=== PATIENT | male | born 2000 | race African-American/Black ===

== ENCOUNTER 2022-12-15 11:59 | Outpatient (REF) | payer BC, SELFPAY ==
--- NOTE | ~2022-12-15 | MR_ITS ---
EXAMINATION: MRI FOOT RIGHT WITHOUT CONTRAST CLINICAL INDICATION: Injury to right 5th metatarsal. COMPARISON: None available. TECHNIQUE: Multiplanar MR imaging was obtained through the right forefoot without contrast material on a 1.5 Genesis magnet. FINDINGS: At the 5th MTP joint, there is a defect in the plantar joint capsule measuring 1.2 x 1.4 cm in area (AP by transverse) with medial displacement torn capsular/plantar plate tissue. A small amount of the plantar plate remains attached to the 5th proximal phalangeal base. There is slight dorsal subluxation of the proximal phalangeal base at the level of the MTP joint. Small joint effusion. Collateral ligaments appear intact. The flexor and extensor tendons also appear intact. Minimal flexor tenosynovitis. No fractures are identified. Bone marrow signal is normal. No contusions. Joint spaces appear relatively well preserved. Intrinsic foot musculature is normal in signal intensity. No muscle atrophy. Imaged plantar fascia is intact. MR/MR foot RT wo con IMPRESSION: Large tear of the plantar plate and plantar joint capsule at the 5th MTP joint with slight dorsal subluxation of the proximal phalangeal base.
== END 2022-12-15 12:00 | disposition home or self-care (01) ==
LOC: HO.MRI 11:59
PROVIDERS: Visit Provider Family Medicine Sports Medicine
DX: S96.811A Strain of other specified muscles and tendons at ankle and foot level, right foot, initial encounter (principal); X58.XXXA Exposure to other specified factors, initial encounter; Y93.9 Activity, unspecified; Y92.9 Unspecified place or not applicable; Y99.9 Unspecified external cause status
CPT/HCPCS: 73718

== ENCOUNTER 2024-05-26 19:10 | Outpatient (REF) | payer OTHER, SELFPAY ==
--- NOTE | ~2024-05-26 | MR_ITS ---
CLINICAL HISTORY: PAIN MR left knee without gadolinium Comparison: None Findings: There is a focal osteochondral defect in the lateral patellar facet. There is marrow edema in the anteromedial femur, possible bone marrow contusion with a questionable overlying focal cartilaginous defect. No acute fracture or pathologic bone lesion. Large simple joint effusion. Anterior and posterior cruciate ligaments are intact. Collateral ligaments are intact. No disruption of the patellar retinacula or iliotibial band. Quadriceps, patellar, popliteus, and flexor tendons are intact. The menisci are intact. IMPRESSION: 1. Lateral patellar facet chondral defect. 2. Possible anteromedial femoral osteochondral lesion. Consider orthopedic surgical consultation for follow-up. 3. Large joint effusion. This document has been electronically signed by: Mikel Haley MD on 05/26/2024 20:43:21
--- OUTSIDE RECORDS SUMMARY | 2024-05-26 19:12 | XMS_ITS | Encounter Summary ---
Author Organization [facility] Address [phone] [place] [address] Care Team Providers Care Knitted Garment Finisher Name Role Phone Quentin Gagnon MD Primary Care Provider [phone] Encounter Details Date Type Department Care Team (Late st Contact Info) Description 05/08/2024 1:30 PM EST Office Visit [facility] Orthopedics & Sports Medicine [address] [place] [address] [place] [address] Leonardo Lamar DO [address] [place] [address] Orthopedics & Sports Medicine, [facility] [place] [address] [email or web address] Status post Achilles tendon repair (Primary Dx) Social History Tobacco Use Types Packs/Day Years Used Date Smoking Tobacco: Never Smokeless Tobacco: Never Alcohol Use Standard Drinks/Week Comments Yes 0 (1 standard drink = 0.6 oz pur e alcohol) 3 per month Education Answer Date Recorded Are you interested in more education? Not on yadira e 07/23/2022 Are you concerned about learning? Not on file 07/23/2022 No 07/23/2022 No 07/23/2022 Digital Access Answer Date Recorded No 08/21/2022 No 08/21/2022 Reliable internet access at home? Not on file 08/21/2022 Device with a working camera? Not on file Sex and Gender Information Value Date Recorded Sex Assigned at Male 09/20/2021 5:05 PM EDT Gender Identity Male 09/20/2021 5:05 PM EDT Sexual Orientation Not on file documented as of this encounter Progress Notes * Leonardo Lamar DO - 05/08/2024 1:30 PM EST Images from the original note were not included. [facility] Orthopedics & Sports Medicine [address] [place] [address] Office Note: Name: Dave Webster Patient Pronoun: he Date of Visit: 05/08/2024 Chief Complaint: Status post Achilles tendon repair, 09/07/2023 History of present illness: The patient is status post Achilles tendon repair, doing well. No pain. Continues to progress with the strength and conditioning team with [employer]. Past Medical History: Past Medical History: Diagnosis Date Achilles rupture COVID-2020 Past Surgical History: Past Surgical History: Procedure Laterality Date REPAIR ACHILLES TENDON Right 09/07/2023 Performed by Leonardo Lamar DO at [facility] OR SHOULDER ARTHROSCOPY Bilateral Medications: No current [facility]-ordered outpatient medications on file. Smoking History: reports that he has never smoked. He has never used smokeless tobacco. He reports current alcohol use. He reports current drug use. Drug: Marijuana. Physical Exam: He is well-appearing and in no apparent distress. The patient is awake, alert, and oriented, in no apparent distress. They are age appropriate, atraumatic and normocephalic. Their affect is appropriate. Examination of the right lower extremity demonstrates neurovascular intact limb. The skin is cool, dry and intact. There is no obvious lymphedema or erythema, good distal pulses, and no sensory deficits. Range of motion in the right ankle is full and pain-free. The Achilles tendon repair is in continuity. The surgical incision is well-healed. There is continued atrophy of the heads of the gastro k nee medius. He is able to walk on his heels comfortably and can now stand up on his toes on just his right leg. Imaging: None taken today Assessment: Status post right Achilles tendon repair Plan: Patient is doing very well but we want a progressing to a running program. 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 Follow-up in 6 to 8 weeks for reevaluation. Leonardo Lamar DO Chief of Orthopedic Surgery Team Surgeon: [facility] Athletics documented in this encounter Plan of Treatment Not on file documented as of this encounter Visit Diagnoses Diagnosis Status post Achilles tendon repair- Primary Other postprocedural status documented in this encounter Care Teams Knitted Garment Finisher Relationship Specialty Start Date End Date Quentin Gagnon MD [address] [place] [address] PCP - General Pediatrics 09/13/21 documented as of this encounter Additional Source Comments The information contained in this document represents components of the legal health record. It is not the complete legal health record.[facility]
--- OUTSIDE RECORDS SUMMARY | 2024-05-26 19:12 | XMS_ITS | Clinical Summary ---
Author Organization [facility] Address [address] [place] [address] Care Team Providers Care Credit Risk Specialist Name Role Phone Quentin Gagnon MD Primary Care Provider [phone] Allergies No known active allergies Medications fluocinonide (LIDEX) 0.05 % gel APPLY TOPICALLY TWICE A DAY TO SCALP BUMPS, 4-6 WEEKS. 2 8 Active ketoconazole (NIZORAL) 2% shampoo SMARTSIG:Topic al 4 Active valsartan (DIOVAN) 80 mg tabletIndicatio ns:Essential hypertension, benign Take 1 tablet (80 mg total) by mouth once a day. 90 tablet 1 5 04/22/19 26 Active Active Problems Problem Noted Date Diagnosed Date Elevated blood pressure reading 03/30/2018 Palpitations 03/30/2018 Pain of left thumb 01/29/2015 Left knee pain 10/02/2014 Encounters Date Type Department Care Team Description 04/22/2024 3:00 PM EST Office Visit [facility] Renal [address] [place] [address] Adjunct Instructor In Economics: Luciano Duke MD Family history of kidney disease (Primary Dx); Essential hypertension, benign; Proteinuria, unspecified type from Last 3 Months Family History Medical History Relation Name Comments Other Mother No pertinent fa jeanmarie history Relation Name Status Comments Mother Social History Tobacco Use Types Packs/Day Years Used Date Smoking Tobacco: Never Comments:: Sex and Gender Information Value Date Recorded Sex Assigned at Not on file Legal Sex Male 5:27 AM EDT Gender Identity Not on file Sexual Orientation Not on file Last Filed Vital Signs Vital Sign Reading Time Taken Comments Blood Pressure 144/84 04/22/2024 4:36 PM EST Pulse 60 04/22/2024 3:05 PM EST Temperature 36.7 ??C (98.1 ??F) 01/08/2017 4:20 PM ED T Respiratory Rate 20 04/27/2018 7:57 AM EST Oxygen Saturation 97% 04/22/2024 3:05 PM EST Inhaled Oxygen Concentration - - Weight 104.3 kg (230 lb) 04/22/2024 3:05 PM EST Height 190.5 cm (6' 3 ) 04/22/2024 3:05 PM EST Body Mass Index 28.75 04/22/2024 3:05 PM EST Plan of Treatment Upcoming Encounters Date Type Department Care Team (Late st Contact Info) Description 05/30/2024 1:15 PM EST Appointment [facility] Ultrasound [address] [place] [address] Luciano Almonte MD [address] [place] [id number] 10/21/2024 2:20 PM EDT Follow-Up [facility] Renal [address] [place] [address] Adjunct Instructor In Economics: Luciano Duke MD [address] [place] [address] Health Maintenance Due Date Last Done Comments HIV Screening 1999 Hepatitis C Screening 1999 Basic Metabolic Panel 04/19/2019 04/19/2018 , 02/18/2010, 04/11/2007 DTaP,Tdap,and Td Vaccines (7 - Td or Tdap) 02/01/2021 02/01/2011, 10/17/2003, 04/05/2001, Additional history exists COVID-19 Vaccine ( - 2023-2 5 season) 2023 04/06/2021, 08/14/2020 Influenza Vaccine (#1) 2023 4, 12/17/2010, 11/23/2009, Additional history exists Alcohol/Substance Use Screening 03/27/2024 Depression Screening and Follow-Up 03/27/2024 Social [facility] Sherrie ual Screening 03/27/2024 RSV Vaccine (60+ years old a nd patients) (1 - 1-dose 75+ series) 10/02/2074 Hepatitis B Vaccines Completed 07/13/2000, 1999, 1999 Pneumococcal Vaccine: Pediat yair (0-5 Years) and At-Risk Patients (6-50 Years) Completed 10/02/2000, 04/04/2000, 02/01/2000, Additional history exists Varicella Vaccines Completed 09/02/2004, 01/02/2001 HPV Vaccines Completed 10/21/2016, 09/25, 01/10/2014 Procedures * Due to [place] law, this organization might not be sharing negative HIV tests. Procedure Name Priority Date/Time Associated Diagnosis Comments PROTEIN, RANDOM URINE WITH CREATININE Routine 04/22/2024 3:22 PM EST Family history of kidney disease MICROALBUMIN, RANDOM URINE WITH CREATININE Routine 04/22/2024 3:22 PM EST Family history of kidney disease BASIC METABOLIC PANEL Routine 04/19/2018 4:02 PM EST Elevated blood pressure reading from Last 3 Months or Most Recently Relevant to Health Maintenance Results * Due to [place] law, this organization might not be sharing negative HIV tests. * (ABNORMAL) Microalbumin, Random Urine with Creatinine (04/22/2024 3:22 PM EST) Creatinine, Random Urine 464(H) 20 - 320 mg/dL 04/24/2024 7:34 PM EST [facility] Comment: Verified by repeat analysis. Microalbumin 3.6 mg/dL 04/24/2024 7:34 PM EST [facility] Comment: Reference Range Not established Microalbumin/Crea tinine Ratio, Random Urine 8 <30 mg/g creat 04/24/2024 7:34 PM EST [facility] Comment: The ADA defines abnormalities in albumin excretion as follows: Albuminuria Category ?Result (mg/g creatinine) Normal to Mildly increased ?? <30 Moderately increased ? 30-299 Severely increased ? > OR = 300 The ADA recommends that at least two of three specimens collected within a 3-6 month period be abnormal before considering a patient to be within a diagnostic category. Urine Voided urine specimen / Unknown 04/22/2024 3:22 PM EST 04/22/2024 11:15 PM EST Luciano Almonte MD LAB URINE ORDERABLES Final Re sult Performing Organization Address [facility] Co de Phone Number [facility] [address], [place] [address], [place] [phone] [facility] [address] [address] * (ABNORMAL) Protein, Random Urine with Creatinine (04/22/2024 3:22 PM EST) Creatinine, Random Urine 464(H) 20 - 320 mg/dL 04/24/2024 7:34 PM EST [facility] Comment: Verified by repeat analysis. Protein/Creati nine Ratio, Random Urine 43 25 - 148 mg/g creat 04/24/2024 7:34 PM EST [facility] Protein/Creati nine Ratio, mg/mg 0.043 0.025 - 0.148 mg/mg creat 04/24/2024 7:34 PM EST [facility] Protein, Total, Random Ur 20 5 - 25 mg/dL 04/24/2024 7:34 PM EST [facility] Urine Voided urine specimen / Unknown 04/22/2024 3:22 PM EST 04/22/2024 11:15 PM EST Luciano Almonte MD LAB URINE ORDERABLES Final Re sult Performing Organization Address [facility] Co de Phone Number [facility] [address] [facility] [address], [place] [address], [place] [phone] [facility] [address] [place] [address] * (ABNORMAL) Basic Metabolic Panel (04/19/2018 4:02 PM EST) NA 138 135 - 145 mmol/L 04/19/2018 4:38 PM EST [facility] K 4.3 3.5 - 5.3 mmol/L 04/19/2018 4:38 PM [facility] Cl 104 97 - 110 mmol/L 04/19/2018 4:38 PM [facility] CO2 29 24 - 32 mmol/L 04/19/2018 4:38 PM [facility] BUN 13 7 - 23 mg/dL 04/19/2018 4:38 PM [facility] Creatinine 1.26 0.60 - 1.30 mg/dL 04/19/2018 4:38 PM [facility] Glucose 93 70 - 99 mg/dL 04/19/2018 4:38 PM [facility] Calcium 8.8 8.7 - 10.7 mg/dL 04/19/2018 4:38 PM [facility] Anion Gap 5 5 - 15 04/19/2018 4:38 PM [facility] eGFR Non- 83(L) >=90 mL/min/BSA 04/19/2018 4:38 PM [facility] Comment: Units = mL/min/1.73 m2 Glomerular Filtration Rate (GFR) is estimated based on the CKD-EPI Creatinine Equation (2009). For Americans multiply results by 1.159. Stage ?Description ? GFR 1 ? Normal ? >=90 mL/min/BSA 2 ? Mildly decreased GFR ? 60-89 mL/min/BSA 3 ? Moderately decreased GFR ? 30-59 mL/min/BSA 4 ? Severely decreased GFR ? 15-29 mL/min/BSA 5 ? Kidney Failure ? <15 mL/min/BSA Blood specimen (specimen) Structure of peripheral vein / Unknown Venipuncture / Unknown 04/19/2018 4:02 PM EST 04/19/2018 4:12 PM EST us Regino Jaramillo MD MS LAB BLOOD ORDERABLE S Final Result [facility] [address] [place] [address], [place] from Last 3 Months or Most Recently Relevant to Health Maintenance Insurance [employer] PPO/EPO/IND HSNO/FREE CARE Advance Directives Documents on File Type Date Recorded Patient Data Integrity Consultant Expl anation Health Care Proxy 01/08/2017 5:16 PM Care Teams Credit Risk Specialist Relationship Specialty Start Date End Date Quentin Gagnon MD [address] [place] [address] PCP - General 10/13/16
--- OUTSIDE RECORDS SUMMARY | 2024-05-26 19:12 | XMS_ITS | Clinical Summary ---
Author Organization [facility] Address [phone] [facility] [place] [address] Care Team Providers Care Credit Rating Checker Name Role Phone Quentin Gagnon MD Primary Care Provider [phone] Allergies No known active allergies Medications No known medications Encounters Date Type Department Care Team Description 05/08/2024 1:30 PM EST Office Visit [facility] Orthopedics & Sports Medicine [address] [place] [address] [place] [address] Leonardo Lamar, Status post Achilles tendon repair (Primary Dx) 04/15/2024 11:15 AM EST Office Visit [facility] [address] [place] [address] Leonardo Lamar, Tiny Briones, MANAGER ENVIRONMENTAL Chronic pain of right ankle (Primary Dx) 04/11/2024 8:15 AM EST Office Visit [facility] [address] [place] [address] Leonardo Lamar, Tiny Briones, MANAGER ENVIRONMENTAL Chronic pain of right ankle (Primary Dx) 04/09/2024 12:45 PM EST Office Visit [address] [address] Leonardo Lamar, Tiny Briones, MANAGER ENVIRONMENTAL Chronic pain of right ankle (Primary Dx) 04/05/2024 Telephone [facility] Orthopedics & Sports Medicine [address] [place] [address] Giovanna Laws, RICKY Letter for School/Work 04/02/2024 7:30 AM EST Office Visit [facility] [address] [place] [address] Leonardo Lamar, Neto Perkins, PT Chronic pain of right ankle (Primary Dx) 03/28/2024 12:45 PM EST Office Visit [facility] [address] [place] [address] Leonardo Lamar DO Palermo, Christine, MANAGER ENVIRONMENTAL Chronic pain of right ankle (Primary Dx) 03/25/2024 8:15 AM EST Office Visit [address] [address] Leonardo Lamar, Tiny Briones, MANAGER ENVIRONMENTAL Chronic pain of right ankle (Primary Dx) 03/18/2024 11:45 AM EST Office Visit [address] [address] Leonardo Lamar DO Goldberg, Jessica Beth, PT Chronic pain of right ankle (Primary Dx) 03/15/2024 12:45 PM EST Office Visit [address] [address] Leonardo Lamar DO Markey, Stephen, PT Chronic pain of right ankle (Primary Dx) 03/05/2024 3:00 PM EST Office Visit [facility] Orthopedics & Sports Medicine [address] [place] [address] [place] [address] Leonardo Lamar, DO Status post Achilles tendon repair (Primary Dx) from Last 3 Months Social History Tobacco Use Types Packs/Day Years [...] PM EDT Sexual Orientation Not on file Last Filed Vital Signs Vital Sign Reading Time Taken Comments Blood Pressure 155/81 09/07/2023 10:25 AM EDT Pulse 69 09/07/2023 1:10 PM EDT Temperature 36.3 ??C (97.3 ??F) 09/07/2023 1:00 PM ED T Respiratory Rate 18 09/07/2023 1:10 PM EDT Oxygen Saturation 95% 09/07/2023 1:55 PM EDT Inhaled Oxygen Concentration - - Weight 108.9 kg (240 lb) 09/07/2023 10:25 AM EDT Height 193 cm (6' 4 ) 09/07/2023 10:25 AM EDT Body Mass Index 29.21 09/07/2023 10:25 AM EDT Plan of Treatment Health Maintenance Due Date Last Done Comments Adult Td,Tdap Booster 1999 DEPRESSION SCREENING 2011 HPV VACCINES (1 - Male 3-dos e series) 10/02/2014 HEPATITIS B SCREENING 10/02/2017 HEPATITIS C SCREENING 10/02/2017 HIV ONE-TIME SCREENING (18-6 5 YEARS) 10/02/2017 HEPATITIS B VACCINES (1 of 3 - 19+ 3-dose series) 10/02/2018 INFLUENZA VACCINE (#1) 2023 COVID-19 VACCINE ( - 2023-2 5 season) 2023 SMOKING Hx and SMOKELESS TOB ACCO SCREENING 09/20/2024 09/21/2023 HEPATITIS A VACCINES Aged Out No long er eligible based on patient's age to complete this topic HIB VACCINES Aged Out No longer eligi ble based on patient's age to complete this topic MENINGOCOCCAL VACCINES (ACWY) Aged Out No longer eligible based on patient's age to complete this topic PNEUMOCOCCAL VACCINES (0-49 years) Aged Out No longer eligible based on patient's age to complete this topic Medical Devices Not on file Procedures Procedure Name Priority Date/Time Associated Diagnosis Comments AMB REFERRAL TO [facility] PHYSICAL THERAPY Routine 03/15/2024 6:47 PM EST from Last 3 Months Results * Ambulatory referral to [facility] Physical Therapy (03/15/2024 6:47 PM EST) Other Leonardo Jaeger Wittenberg DO [facility] REFERRALS from Last 3 Months Care Teams Credit Rating Checker Relationship Specialty Start Date End Date Quentin Gagnon MD [address] [place] [address] PCP - General Pediatrics 09/13/21 Additional Source Comments The information contained in this document represents components of the legal health record. It is not the complete legal health record.[facility]
--- OUTSIDE RECORDS SUMMARY | 2024-05-26 19:12 | XMS_ITS | Encounter Summary ---
Author Organization [facility] Address [address] [place] [address] Care Team Providers Care Press Tool Maker Name Role Phone Quentin Gagnon MD Primary Care Provider [phone] Reason for Referral * Diagnostic Imaging (Routine) - Closed Specialty Diagnoses / Procedures Referred By Contdeanna t Referred To Contact Diagnoses Elevated blood pressure reading Procedures US Kidney and Bladder Quentin Gagnon MD [address] [place] [address] Phone: tel: fax: Referral ID Status Reason Start Date Expiration Date Visits Re quested Visits Authorized [id number] Closed 08/19/2021 02/18/2023 1 1 Encounter Details Date Type Department Care Team (Latest Contact Info) Description 08/19/2021 Community Orders [facility] Link [address] [place] [address] Quentin Gagnon MD [address] [place] [address] Elevated blood pressure reading (Primary Dx); Hypertension complications Social History Tobacco Use Types Packs/Day Years Used Date Smoking Tobacco: Never Comments:: Sex and Gender Information Value Date Recorded Sex Assigned at Not on file Legal Sex Male 5:27 AM EDT Gender Identity Not on file Sexual Orientation Not on file documented as of this encounter Plan of Treatment Upcoming Encounters Date Type Department Care Team (Late st Contact Info) Description 05/30/2024 1:15 PM EST Appointment [facility] Ultrasound [address] [place] [address] Luciano Almonte MD [address] [place] [address] 10/21/2024 2:20 PM EDT Follow-Up [facility] Renal [address] [place] [address] Proposal Writer: Luciano Duke MD [address] [place] [address] documented as of this encounter Results * Due to [place] state law, this organization might not be sharing negative HIV tests. * US Kidney and Bladder (08/20/2021 11:20 AM EDT) Anatomical Region Laterality Modality Body N/A Ultrasound 08/20/2021 1:05 PM EDT Impressions 08/20/2021 2:47 PM EDT Normal echogenicity of the kidneys without hydronephrosis or hydroureter. Normal renal cortex. If this radiology report contains a blank impression section, it is an incomplete radiology report. ??Please contact the interpreting radiologist or applicable radiology division as soon as possible to obtain the completed interpretation. ? Workstation ID: [id number] Narrative 08/20/2021 2:47 PM EDT EXAMINATION: Ultrasound kidneys and bladder. INDICATION: Elevated blood pressure TECHNIQUE: Ultrasound evaluation of the kidneys and bladder. Multiple grayscale and color Doppler images were obtained. COMPARISON: None FINDINGS: RIGHT KIDNEY: ??The right kidney measures 10.4 cm. Normal cortex. There is no hydronephrosis. No sonographically evident nephrolithiasis or solid mass. LEFT KIDNEY: ??The left kidney measures 10.2 cm. Normal cortex. There is no hydronephrosis. No sonographically evident nephrolithiasis or solid mass. BLADDER: The bladder is unremarkable in sonographic appearance. Bilateral ureteral jets are seen. Prevoid, bladder volume is 61 mL. Post void residual bladder volume is 1 mL. Resulting Agency Comment [id number] Procedure Note Cher Cat - 08/20/2021 EXAMINATION: Ultrasound kidneys and bladder. INDICATION: Elevated blood pressure TECHNIQUE: Ultrasound evaluation of the kidneys and bladder. Multiplegrayscale and color Doppler images were obtained. COMPARISON: None FINDINGS: RIGHT KIDNEY: The right kidney measures 10.4 cm. Normal cortex. There isno hydronephrosis. No sonographically evident nephrolithiasis or solidmass. LEFT KIDNEY: The left kidney measures 10.2 cm. Normal cortex. There is nohydronephrosis. No sonographically evident nephrolithiasis or solidmass. BLADDER: The bladder is unremarkable in sonographic appearance. Bilateralureteral jets are seen. Prevoid, bladder volume is 61 mL. Post voidresidual bladder volume is 1 mL. IMPRESSION: Normal echogenicity of the kidneys without hydronephrosis or hydroureter.Normal renal cortex. If this radiology report contains a blank impression section, it is anincomplete radiology report. Please contact the interpreting radiologistor applicable radiology division as soon as possible to obtain thecompleted interpretation. Workstation ID: [id number] us Quentin Gagnon MD IMG US PROCEDURES Final Result documented in this encounter Visit Diagnoses Diagnosis Elevated blood pressure reading- Primary Elevated blood pressure reading without diagnosis of hypertension Hypertension complications Elevated blood pressure reading Elevated blood pressure reading without diagnosis of hypertension documented in this encounter Care Teams Press Tool Maker Relationship Specialty Start Date End Date Quentin Gagnon MD [address] [place] [address] PCP - General 10/13/16 documented as of this encounter
--- OUTSIDE RECORDS SUMMARY | 2024-05-26 19:13 | XMS_ITS | Encounter Summary ---
Author Organization [facility] Address [phone] [facility] Definition [address] [place] [address] Care Team Providers Care Pocket Maker Name Role Phone Quentin Gagnon MD Primary Care Provider [phone] Cristian Du DO Unavailable [phone] Edson Porras DO Unavailable [phone] Jolie Thompson MD Unavailable [phone] Encounter Details Date Type Department Care Team (Late st Contact Info) Description 09/14/2021 Ancillary Orders [facility] Orthopedics & Sports Medicine [address] [place] [id number] Nawaf Ramirez PA-C [address] [place] [address] Orthopedics & Sports Medicine, [place] [address] Right hip pain Social History Tobacco Use Types Packs/Day Years Used Date Smoking Tobacco: Never Smokeless Tobacco: Never Sex and Gender Information Value Date Recorded Sex Assigned at Male 09/20/2021 5:05 PM EDT Gender Identity Male 09/20/2021 5:05 PM EDT Sexual Orientation Not on file documented as of this encounter Plan of Treatment Not on file documented as of this encounter Results * XR HIP 2 VW RIGHT PLUS PELVIS (09/14/2021 11:18 AM EDT) Anatomical Region Laterality Modality Hip, Pelvis Computed Radiogr aphy 09/14/2021 4:25 PM EDT Impressions 09/14/2021 5:01 PM EDT No findings to account for pain. Narrative 09/14/2021 5:01 PM EDT COMPARISON: None. RIGHT HIP/PELVIC RADIOGRAPH FINDINGS: 3 images obtained. No acute fracture or malalignment. Joint spaces are preserved. No destructive or suspicious bone lesions. No soft tissue swelling. Procedure Note Rohit Osorio MD - 09/14/2021 COMPARISON: None. RIGHT HIP/PELVIC RADIOGRAPH FINDINGS: 3 images obtained. No acute fracture or malalignment. Joint spaces are preserved. Nodestructive or suspicious bone lesions. No soft tissue swelling. IMPRESSION: No findings to account for pain. Nawaf Ramirez PA-C IMG XR PELVIS documented in this encounter Visit Diagnoses Diagnosis Right hip pain Pain in joint, pelvic region and thigh Right hip pain Pain in joint, pelvic region and thigh documented in this encounter Care Teams Pocket Maker Relationship Specialty Start Date End Date Quentin Gagnon MD [address] [place] [address] PCP - General Pediatrics 09/13/21 Cristian Du DO [address] [place] [phone] [email or web address] Insurance Assigned Provider 03/05/22 Edson Porras DO [address] [place] [phone] [email or web address] Insurance Assigned Provider 07/01/23 Jolie Thompson MD [address] [place] [phone] [email or web address] Insurance Assigned Provider 09/30/23 03/06/24 documented as of this encounter Additional Source Comments The information contained in this document represents components of the legal health record. It is not the complete legal health record.[facility]
--- OUTSIDE RECORDS SUMMARY | 2024-05-26 19:13 | XMS_ITS | Encounter Summary ---
Author Organization [facility] Address [phone] [facility] [address] Care Team Providers Care Supervisor Dental Laboratory Name Role Phone Quentin Gagnon MD Primary Care Provider [phone] Cristian Du DO Unavailable [phone] Edson Porras DO Unavailable [phone] Jolie Thompson MD Unavailable [phone] Encounter Details Date Type Department Care Team (Late st Contact Info) Description 11/29/2022 Procedure Pass [address] [place] [address] Social History Tobacco Use Types Packs/Day Years Used Date Smoking Tobacco: Never Smokeless Tobacco: Never Education Answer Date Recorded Are you interested [...] documented as of this encounter Visit Diagnoses Not on filedocumented in this encounter Care Teams Supervisor Dental Laboratory Relationship Specialty Start Date End Date Quentin Gagnon MD [address] [place] [address] PCP - General Pediatrics 09/13/21 Cristian Du DO [address] [place] [address] [email or web address] Insurance Assigned Provider 03/05/22 Edson Porras DO [address] [place] [address] [email or web address] Insurance Assigned Provider 07/01/23 Jolie Thompson MD [address] [place] [address] [email or web address] Insurance Assigned Provider 09/30/23 03/06/24 documented as of this encounter Additional Source Comments The information contained in this document represents components of the legal health record. It is not the complete legal health record.[facility]
--- OUTSIDE RECORDS SUMMARY | 2024-05-26 19:13 | XMS_ITS | Encounter Summary ---
Author Organization [facility] Address [phone] [facility] [place] [address] Care Team Providers Care Printed Circuit Board Pcb Designer Name Role Phone Quentin Gagnon MD Primary Care Provider [phone] Jolie Thompson MD Unavailable [phone] Encounter Details Date Type Department Care Team (Late st Contact Info) Description 09/07/2023 Procedure Pass OR Admitting Dept - Virtual Department [address] [place] [address] Social History Tobacco Use Types Packs/Day Years [...] on filedocumented in this encounter Care Teams Printed Circuit Board Pcb Designer Relationship Specialty Start Date End Date Quentin Gagnon MD [address] [place] [id number] PCP - General Pediatrics 09/13/21 Jolie Thompson MD [address] [place] [phone] [email or web address] Insurance Assigned Provider 09/30/23 03/06/24 documented as of this encounter Additional Source Comments The information contained in this document represents components of the legal health record. It is not the complete legal health record.[facility]
--- OUTSIDE RECORDS SUMMARY | 2024-05-26 19:13 | XMS_ITS | Encounter Summary ---
Author Organization [facility] Address [phone] [facility] [place] [address] Care Team Providers Care Obstetrical Tech Name Role Phone Quentin Gagnon MD Primary Care Provider [phone] Cristian Du DO Unavailable Edson Porras DO Unavailable [phone] Jolie Thompson MD Unavailable [phone] Encounter Details Date Type Department Care Team (Late st Contact Info) Description 09/20/2021 Transcribe Orders Virtual Department [address] [place] [address] Cristian Du DO [address] [place] [address] [email or web address] Pain in right hip (Primary Dx) Social History Tobacco Use Types Packs/Day Years Used Date Smoking Tobacco: Never Smokeless Tobacco: Never Sex and Gender Information Value Date Recorded Sex Assigned at Male 09/20/2021 5:05 PM EDT Gender Identity Male 09/20/2021 5:05 PM EDT Sexual Orientation Not on file documented as of this encounter Plan of Treatment Not on file documented as of this encounter Visit Diagnoses Diagnosis Pain in right hip- Primary documented in this encounter Care Teams Obstetrical Tech Relationship Specialty Start Date End Date Quentin Gagnon MD [address] [place] [address] PCP - General Pediatrics 09/13/21 Cristian Du DO [address] [place] [address] Insurance Assigned Provider 03/05/22 Edson Porras DO [address] [place] [address] [email or web address] Insurance Assigned Provider 07/01/23 Jolie Thompson MD [address] [place] [address] [email or web address] Insurance Assigned Provider 09/30/23 03/06/24 documented as of this encounter Additional Source Comments The information contained in this document represents components of the legal health record. It is not the complete legal health record.[facility]
--- OUTSIDE RECORDS SUMMARY | 2024-05-26 19:13 | XMS_ITS | Data Portability ---
Author Organization MAGDALENA Kalin [facility] - Address [address] [place] [address] Assessment Encounter Date Assessment Date Assessment LastModified by Organization Details LastModified Time 02/01/2019 02/01/2019 Well-appearing young adult presents for WCC. No concerns about vision or hearing unless otherwise stated in visit. Anticipatory guidance discussed, including school/work plans, living situation, appropriate nutrition and activity for age, risk taking behaviors, car safety, sexual activity, avoid drugs/EtOH, signs of depression. Discussed transition to adult provider. Follow-up in one year for next WCC, sooner if any new concerns. PT advised to have less snacks; increase fruits and vegetables; exercise more Not available 02/01/2019 10:29:18 03/25/2021 03/25/2021 Well-appearing young adult presents for WCC. No concerns about vision or hearing unless otherwise stated in visit. Anticipatory guidance discussed, including school/work plans, living situation, appropriate nutrition and activity for age, risk taking behaviors, car safety, sexual activity, avoid drugs/EtOH, signs of depression. Discussed transition to adult provider. Follow-up in one year for next WCC, sooner if any new concerns. [email or web address] Not available 03/25/2021 16:17:55 Plan of Treatment Reminders Order Date Submit Date Provider Last Modified By Organization Details Last Modified Time Details Appointments None recorded. Lab CMP, serum or plasma 2021 022 [facility], [address], [facility], [place], [address], 23:00:29 TSH, serum or plasma 2021 IMTIAZ [facility], [address], [address], [place], [address], 2 23:00:31 urinalysis, complete 2021 IMTIAZ [facility], [address], [address], [place], [address], 2 23:00:30 CBC w/ auto diff 2021 SALLEY [facility], [address], [address], [place], [address], 2 23:00:31 metanephrin es, fractionate d, free, plasma 2021 [facility], [address], [address], [place], [address], 23:00:30 CT + NG RNA, PCR, unspecified specimen 2020 [facility], [address], [address], [place], [address], 2 13:31:23 urinalysis, complete 2018 019 [facility], [address], [address], [place], [address], 9 01:05:27 culture, urine 2018 019 [facility], [address], [address], [place], [address], 9 01:05:28 CT + NG RNA, PCR, unspecified specimen 2018 019 [facility], [address], [address], [place], [address], 9 01:05:27 Referral cardiologis t referral 2021 022 [email or web address] Not available 08:10:26 Procedures None recorded. Surgeries None recorded. Imaging None recorded. Medication Orders None recorded. Patient Targets Encounter Date Encounter Id Patient Goals Patient Target Last Modified By Organization Details Last Modified Time repeat BP 140/ 88 [email or web address] Not available 08/13/2021 12:08:08 Patient Instructions Encounter Date Encounter Id Patient Instructions Last Modified By Organization Details Last Modified Time 02/01/2019 [id number] visual acuity* [email or web address] Not available 02/01/2019 11:10:18 hearing screening* [email or web address] Not available 02/01/2019 11:10:18 Return to office in 1 year for TREY. Not available 02/01/2019 10:28:50 03/25/2021 [id number] visual acuity* [email or web address] Not available 03/27/2021 10:42:04 hearing screening* iharding Not available 03/27/2021 10:42:04 Return to office in 1 year for TREY. [email or web address] Not available 03/25/2021 15:30:33 08/13/2021 [id number] consider cards renal iharding Not available 08/13/2021 12:08:35 10/26/2021 [id number] See cards get clearance before finasteride iharding Not available 10/26/2021 13:40:30 Reason for Referral Product Coordinator Referral for El evated blood-pressure reading without diagnosis of hypertension Referring Physician: Quentin Gagnon, Pediatric Medicine, Encounter Date: 08/13/2021 Results Created Date Observation Date Name Description Value Unit Range Abnormal Flag Note LastModifiedBy Organization Detail LastModifiedTime 02/02/20 19 02/01/2019 aileen callahan* Unknown Analyte normal Not Available [facility] [address], [place], [address], 02/01/2019 10:28:51 02/02/20 19 02/01/2019 heari ng scree london* Unknown Analyte normal Not Available [facility] [address] [place], [address], 02/01/2019 10:28:51 02/02/20 19 02/01/2019 heari ng scree london* Unknown Analyte normal Not Available [facility] [address] [place], [address], 02/01/2019 10:28:51 02/02/20 19 02/01/2019 heari ng scree london* Unknown Analyte normal Not Available [facility] [address] [place], [address], 02/01/2019 10:28:51 02/02/20 19 02/01/2019 heari ng scree london* Unknown Analyte normal Not Available [facility] [address] [place], [address], 02/01/2019 10:28:51 02/02/20 19 02/01/2019 heari ng scree london* Unknown Analyte normal Not Available [facility] [address] [place], [address], 02/01/2019 10:28:51 02/02/20 19 02/01/2019 heari ng scree london* Unknown Analyte normal Not Available [facility] [address] [place], [address], 02/01/2019 10:28:51 02/02/20 19 02/01/2019 heari ng scree london* Unknown Analyte normal Not Available [facility] [address] [place], [address], 02/01/2019 10:28:51 02/02/20 19 02/01/2019 heari ng scree london* Unknown Analyte PASS Not Available [facility] [address] [place], [address], 02/01/2019 10:28:51 02/02/20 19 02/01/2019 aileen callahan* Unknown Analyte PASS Not Available [facility] [address] [place], [address], 02/01/2019 10:28:51 02/02/20 19 02/01/2019 visua l acuit y* R Eye Uncorrected 20/20 Not Available [facility] [address] [place], [address], 02/01/2019 10:28:51 02/02/20 19 02/01/2019 visua l acuit y* L Eye Uncorrected 20/20 Not Available [facility] [address] [place], [address], 02/01/2019 10:28:51 02/02/20 19 02/01/2019 visua l acuit y* NOTES: PASS Not Available [facility] [address] [place], [address], 02/01/2019 10:28:51 02/02/20 19 02/02/2019 urina lysis , compl ete color YELLOW yellow normal Not Available [facility] [address], [address], 02/02/2019 01:05:27 02/02/20 19 02/02/2019 urina lysis , compl ete appearance CLEAR clear normal Not Available [facility] [address], [address], 02/02/2019 01:05:27 02/02/20 19 02/02/2019 urina lysis , compl ete specific gravity 1.004 1.001- 1.035 normal Not Available [facility] [address], [address], 02/02/2019 01:05:27 02/02/20 19 02/02/2019 urina lysis , compl ete pH 7.0 5.0-8. 0 normal Not Available [facility] [place] [facility] [address], [place], [address], 02/02/2019 01:05:27 02/02/2002/02/2019 urina lysis , compl ete glucose NEGATI VE negati ve normal Not Available [facility] [place] [facility] [address], [place], [address], 02/02/2019 01:05:27 02/02/2002/02/2019 urina lysis , compl ete bilirubin NEGATI VE negati ve normal Not Available [facility] [place] [facility] [address], [place], [address], 02/02/2019 01:05:27 02/02/2002/02/2019 urina lysis , compl ete ketones NEGATI VE negati ve normal Not Available [facility] [place] [facility] [address], [place], [address], 02/02/2019 01:05:27 02/02/2002/02/2019 urina lysis , compl ete occult blood NEGATI VE negati ve normal Not Available [facility] [place] [facility] [address], [place], [address], 02/02/2019 01:05:27 02/02/2002/02/2019 urina lysis , compl ete protein NEGATI VE negati ve normal Not Available [facility] [place] [facility] [address], [place], [address], 02/02/2019 01:05:27 02/02/2002/02/2019 urina lysis , compl ete nitrite NEGATI VE negati ve normal Not Available [facility] [place] [facility] [address], [place], [address], 02/02/2019 01:05:27 02/02/20 19 02/02/2019 urina lysis , compl ete leukocyte esterase NEGATI VE negati ve normal Not Available [facility] [place] [facility] [address], [place], [address], 02/02/2019 01:05:27 02/02/20 19 02/02/2019 urina lysis , compl ete WBC NONE SEEN /hpf < or = 5 normal Not Available [facility] [address], [place], [address], 02/02/2019 01:05:27 02/02/2002/02/2019 urina lysis , compl ete RBC NONE SEEN /hpf < or = 2 normal Not Available [facility] [address], [place], [address], 02/02/2019 01:05:27 02/02/2002/02/2019 urina lysis , compl ete squamous epithelial cells NONE SEEN /hpf < or = 5 normal Not Available [facility] [address], [place], [address], 02/02/2019 01:05:27 02/02/20 19 02/02/2019 urina lysis , compl ete bacteria NONE SEEN /hpf none seen normal Not Available [facility] [address], [place], [address], 02/02/2019 01:05:27 02/02/20 19 02/02/2019 urina lysis , compl ete hyaline cast NONE SEEN /lpf none seen normal Not Available [facility] [address], [place], [address], 02/02/2019 01:05:27 02/02/20 19 02/02/2019 CT + NG RNA, PCR, unspe cifie d speci men chlamydia trachomatis RNA, tma, urogenital NOT DETECT ED not detect ed normal Not Available [facility] [place] [facility] [address], [address], 02/02/2019 06:30:26 02/02/20 19 02/02/2019 CT + NG RNA, PCR, unspe cifie d speci men neisseria gonorrhoeae RNA, tma, urogenital NOT DETECT ED not detect ed normal Not Available [facility] [place] [facility] [address], [address], 02/02/2019 06:30:26 02/02/20 19 02/02/2019 CT + NG RNA, PCR, unspe cifie d speci men comment This test was perfo rmed using the APTIM A COMBO 2 Assay ([employer] . The rodney tical perfo rmanc e shravan cteri stics of this assay , when used to test SureP ath speci mens have been deter mined by [facility]. Not Available [facility] [email or web address]- [address], [address], 02/02/2019 06:30:26 02/02/2002/02/2019 cultu re, urine culture SEE NOTE Not Available [facility]- [address], [address], 02/02/2019 01:05:28 02/02/2002/02/2019 cultu re, urine culture, urine, routine SEE NOTE CULTU RE, URINE , ROUTI NE Micro Numbe r: [id number] Test Statu s: Final Speci men Sourc e: URINE , CLEAN CATCH Speci men Quali ty: Adequ ate Resul t: No Growt h Not Available [facility] [place] [facility] [address] [place] [address], [address], 02/02/2019 16:27:02 03/25/20 21 03/29/2021 CHLAM YDIA/ N. GONOR RHOEA E RNA, TMA, UROGE NITAL chlamydia trachomatis RNA, tma, urogenital NOT DETECT ED not detect ed normal Not Available [facility] [place] [facility] [address], [place], [address], 03/29/2021 13:31:23 03/25/20 21 03/29/2021 CHLAM YDIA/ N. GONOR RHOEA E RNA, TMA, UROGE NITAL neisseria gonorrhoeae RNA, tma, urogenital NOT DETECT ED not detect ed normal Not Available [facility] [place] [facility] [address], [place], [address], 03/29/2021 13:31:23 03/25/20 21 03/29/2021 CHLAM YDIA/ N. GONOR RHOEA E RNA, TMA, UROGE NITAL comment The rodney tical perfo rmanc e shravan cteri stics of this assay , when used to test SureP ath(T M) speci mens have been deter mined by [facility]. The modif icati ons have not been clear ed or appro amos by the FDA. This assay has been valid ated pursu ant to the CLIA regul ation s and is used for clini jose l purpo ses. For addit ional marcosr donovan colorado e refer to https ://ed ucati on.qu altoyaBPL Global. [employer]/f aq/FA Q154 (This link is being provi ded for infor lan urbina/ ronald gregorio l purpo ses only. ) Not Available [facility] [place] [facility] [address], [place], [address], 03/29/2021 13:31:23 03/25/20 21 03/25/2021 visua l acuit y* R Eye Uncorrected - Not Available [facility] [address], [place], [address], 03/25/2021 15:30:35 03/25/20 21 03/25/2021 visua l acuit y* L Eye Uncorrected - Not Available [facility] [address] [place], [address], 03/25/2021 15:30:35 03/25/20 21 03/25/2021 visua l acuit y* R Eye Corrected 20/20 Not Available [facility] [address] [place], [address], 03/25/2021 15:30:35 03/25/20 21 03/25/2021 visua l acuit y* L Eye Corrected 20/20 Not Available [facility] [address] [place], [address], 03/25/2021 15:30:35 03/25/20 21 03/25/2021 visua l acuit y* NOTES: color pass Not Available [facility] [address] [place], [address], 03/25/2021 15:30:35 03/25/20 21 03/25/2021 heari ng scree london* Unknown Analyte normal Not Available [facility] [address] [place], [address], 03/25/2021 15:30:35 03/25/20 21 03/25/2021 heari ng scree london* Unknown Analyte normal Not Available [facility] [address] [place], [address], 03/25/2021 15:30:35 03/25/20 21 03/25/2021 heari ng scree london* Unknown Analyte normal Not Available [facility] [address] [place], [address], 03/25/2021 15:30:35 03/25/20 21 03/25/2021 heari ng scree london* Unknown Analyte normal Not Available [facility] [address] [place], [address], 03/25/2021 15:30:35 03/25/20 21 03/25/2021 heari ng scree london* Unknown Analyte normal Not Available [facility] [address] [place], [address], 03/25/2021 15:30:35 03/25/20 21 03/25/2021 heari ng scree london* Unknown Analyte normal Not Available [facility] [address] [place], [address], 03/25/2021 15:30:35 03/25/20 21 03/25/2021 heari ng scree london* Unknown Analyte normal Not Available [facility] [address] [place], [address], 03/25/2021 15:30:35 03/25/20 21 03/25/2021 heari ng scree london* Unknown Analyte normal Not Available [facility] [address] [place], [address], 03/25/2021 15:30:35 03/25/20 21 03/25/2021 heari ng scree london* Unknown Analyte PASS Not Available [facility] [address] [place], [address], 03/25/2021 15:30:35 03/25/20 21 03/25/2021 heari ng scree london* Unknown Analyte PASS Not Available [facility] [address] [place], [address], 03/25/2021 15:30:35 08/14/19 22 08/14/2021 COMPR EHENS ANTONIO METAB OLIC PANEL glucose 79 mg/dL 65-139 normal Non-f astin g refer ence inter jayde Not Available [facility] [place] [facility] [address] [place] [address], [place], [address], 08/14/2021 04:39:01 08/14/19 22 08/14/2021 COMPR EHENS ANTONIO METAB OLIC PANEL urea nitrogen (BUN) 18 mg/dL 7-25 normal Not Available [facility] [address], [place], [address], 08/14/2021 04:39:01 08/14/19 22 08/14/2021 COMPR EHENS ANTONIO METAB OLIC PANEL creatinine 1.36 mg/dL 0.60-1 .35 high Not Available [facility] [address], [place], [address], 08/14/2021 04:39:01 08/14/19 22 08/14/2021 COMPR EHENS ANTONIO METAB OLIC PANEL eGFR non-afr. vietnamese 74 mL/mi n/1.7 3m2 > or = 60 normal Not Available [facility] [address], [place], [address], 08/14/2021 04:39:01 08/14/19 22 08/14/2021 COMPR EHENS ANTONIO METAB OLIC PANEL eGFR 86 mL/mi n/1.7 3m2 > or = 60 normal Not Available [facility] [address], [place], [address], 08/14/2021 04:39:01 08/14/19 22 08/14/2021 COMPR EHENS ANTONIO METAB OLIC PANEL BUN/creatini ne ratio 13 (calc ) 6-22 normal Not Available [facility] [address], [place], [address], 08/14/2021 04:39:01 08/14/19 22 08/14/2021 COMPR EHENS ANTONIO METAB OLIC PANEL sodium 139 mmol/ L 135-14 6 normal Not Available [facility] [address], [place], [address], 08/14/2021 04:39:01 08/14/19 22 08/14/2021 COMPR EHENS ANTONIO METAB OLIC PANEL potassium 4.6 mmol/ L 3.5-5. 3 normal Not Available [facility] [address], [place], [address], 08/14/2021 04:39:01 08/14/19 22 08/14/2021 COMPR EHENS ANTONIO METAB OLIC PANEL chloride 103 mmol/ L 98-110 normal Not Available [facility] [address], [place], [address], 08/14/2021 04:39:01 08/14/19 22 08/14/2021 COMPR EHENS ANTONIO METAB OLIC PANEL carbon dioxide 31 mmol/ L 20-32 normal Not Available [facility] [address], [place], [address], 08/14/2021 04:39:01 08/14/19 22 08/14/2021 COMPR EHENS ANTONIO METAB OLIC PANEL calcium 9.9 mg/dL 8.6-10 .3 normal Not Available [facility] [address], [place], [address], 08/14/2021 04:39:01 08/14/19 22 08/14/2021 COMPR EHENS ANTONIO METAB OLIC PANEL protein, total 7.4 g/dL 6.1-8. 1 normal Not Available [facility] [address], [place], [address], 08/14/2021 04:39:01 08/14/19 22 08/14/2021 COMPR EHENS ANTONIO METAB OLIC PANEL albumin 4.6 g/dL 3.6-5. 1 normal Not Available [facility] [address], [place], [address], 08/14/2021 04:39:01 08/14/19 22 08/14/2021 COMPR EHENS ANTONIO METAB OLIC PANEL globulin 2.8 g/dL_ (calc ) 1.9-3. 7 normal Not Available [facility] [address], [place], [address], 08/14/2021 04:39:01 08/14/19 22 08/14/2021 COMPR EHENS ANTONIO METAB OLIC PANEL albumin/glob ulin ratio 1.6 (calc ) 1.0-2. 5 normal Not Available [facility] [address], [place], [address], 08/14/2021 04:39:01 08/14/19 22 08/14/2021 COMPR EHENS ANTONIO METAB OLIC PANEL bilirubin, total 0.5 mg/dL 0.2-1. 2 normal Not Available [facility] [address], [place], [address], 08/14/2021 04:39:01 08/14/19 22 08/14/2021 COMPR EHENS ANTONIO METAB OLIC PANEL alkaline phosphatase 90 U/L 36-130 normal Not Available [facility] [address], [place], [address], 08/14/2021 04:39:01 08/14/19 22 08/14/2021 COMPR EHENS ANTONIO METAB OLIC PANEL AST 34 U/L 10-40 normal Not Available [facility] [address], [place], [address], 08/14/2021 04:39:01 08/14/19 22 08/14/2021 COMPR EHENS ANTONIO METAB OLIC PANEL ALT 22 U/L 9-46 normal Not Available [facility] [address], [place], [address], 08/14/2021 04:39:01 08/14/19 22 08/18/2021 METAN EPHRI TINA, FRACT , FREE, LC/MS /MS, PLASM A metanephrine , free 46 pg/mL <=57 This test was devel oped and its rodney tical perfo rmanc e shravan cteri stics have been deter mined by [employer] [place], [place]. It has not been clear ed or appro amos by the U.S. Food and Drug Admin istra tion. This assay has been valid ated pursu ant to the CLIA regul ation s and is used for clini jose l purpo ses. Not Available [facility] [address], [address], 08/18/2021 14:32:44 08/14/19 22 08/18/2021 METAN EPHRI TINA, FRACT , FREE, LC/MS /MS, PLASM A normetanephr ine, free 74 pg/mL <=148 This test was devel oped and its rodney tical perfo rmanc e shravan cteri stics have been deter mined by [email or web address] [place], [place]. It has not been clear ed or appro amos by the U.S. Food and Drug Admin istra tion. This assay has been valid ated pursu ant to the CLIA regul ation s and is used for clini jose l purpo ses. Not Available [facility] [address], [address], 08/18/2021 14:32:44 08/14/19 22 08/18/2021 METAN EPHRI TINA, FRACT , FREE, LC/MS /MS, PLASM A total, free (MN+nmn) 120 pg/mL <=205 For addit ional donovan read refer to http: //[facility] elizabeth urbina.que stdia gnost ics.c om/fa q/Met Fract Free (This link is being provi ded for infor matio nal/e ducat io infor matio nal/e ducat ional purpo ses only. ) Fortuna tions >4-fo ld upper refer ence range : stron gly sugge stive of a pheoc hromo cytom a(1). Fortuna tions >1- 4-fol d upper refer ence range : signi fican t but not diagn ostic , may be due to medic ation s or stres s. Sugge st runni ng 24 hr urine fract ionat ed metan ephri tina and/o r serum Chrom agran in A for confi rmati on. Refer ence: (1)Al gecir as-Sc himni ch A et al, Plasm a Chrom ogran in A or Urine Fract ionat ed Metan ephri tina Follo w-Up Testi ng Impro ves the Diagn ostic Accur acy of Plasm a Fract ionat ed Metan ephri tina for Pheoc hromo cytom a. The Journ al of Clini jose l Endoc rinol ogy # Metab olism 93(1) , 91-95 , 2007. This test was devel oped and its rodney tical perfo rmanc e shravan cteri stics have been deter mined by [facility] [place]. It has not been clear ed or appro amos by the U.S. Food and Drug Admin istra tion. This assay has been valid ated pursu ant to the CLIA regul ation s and is used for clini jose l purpo ses. Not Available [facility] [address], [address], 08/18/2021 14:32:44 08/14/19 22 08/14/2021 URINA LYSIS , COMPL ETE color YELLOW yellow normal Not Available [facility] [address], [address], 08/14/2021 04:39:03 08/14/19 22 08/14/2021 URINA LYSIS , COMPL ETE appearance CLEAR clear normal Not Available [facility] [address] [place], [address], 08/14/2021 04:39:03 08/14/19 22 08/14/2021 URINA LYSIS , COMPL ETE specific gravity 1.025 1.001- 1.035 normal Not Available [facility] [place] [facility] [address], [place], [address], 08/14/2021 04:39:03 08/14/19 22 08/14/2021 URINA LYSIS , COMPL ETE pH 6.5 5.0-8. 0 normal Not Available [facility] [place] [facility] [address], [place], [address], 08/14/2021 04:39:03 08/14/19 22 08/14/2021 URINA LYSIS , COMPL ETE glucose NEGATI VE negati ve normal Not Available [facility] [place] [facility] [address], [place], [address], 08/14/2021 04:39:03 08/14/19 22 08/14/2021 URINA LYSIS , COMPL ETE bilirubin NEGATI VE negati ve normal Not Available [facility] [place] [facility] [address], [place], [address], 08/14/2021 04:39:03 08/14/19 22 08/14/2021 URINA LYSIS , COMPL ETE ketones NEGATI VE negati ve normal Not Available [facility] [place] [facility] [address], [place], [address], 08/14/2021 04:39:03 08/14/19 22 08/14/2021 URINA LYSIS , COMPL ETE occult blood NEGATI VE negati ve normal Not Available [facility] [place] [facility] [address], [place], [address], 08/14/2021 04:39:03 08/14/19 22 08/14/2021 URINA LYSIS , COMPL ETE protein NEGATI VE negati ve normal Not Available [facility] [place] [facility] [address], [place], [address], 08/14/2021 04:39:03 08/14/19 22 08/14/2021 URINA LYSIS , COMPL ETE nitrite NEGATI VE negati ve normal Not Available [facility] [place] [facility] [address], [place], [address], 08/14/2021 04:39:03 08/14/19 22 08/14/2021 URINA LYSIS , COMPL ETE leukocyte esterase NEGATI VE negati ve normal Not Available [facility] [address], [place], [address], 08/14/2021 04:39:03 08/14/19 22 08/14/2021 URINA LYSIS , COMPL ETE WBC NONE SEEN /hpf < or = 5 normal Not Available [address], [place], [address], 08/14/2021 04:39:03 08/14/19 22 08/14/2021 URINA LYSIS , COMPL ETE RBC NONE SEEN /hpf < or = 2 normal Not Available [address], [place], [address], 08/14/2021 04:39:03 08/14/19 22 08/14/2021 URINA LYSIS , COMPL ETE squamous epithelial cells NONE SEEN /hpf < or = 5 normal Not Available [facility] [address], [place], [address], 08/14/2021 04:39:03 08/14/19 22 08/14/2021 URINA LYSIS , COMPL ETE bacteria NONE SEEN /hpf none seen normal Not Available [facility] [address], [place], [address], 08/14/2021 04:39:03 08/14/19 22 08/14/2021 URINA LYSIS , COMPL ETE hyaline cast NONE SEEN /lpf none seen normal Not Available [facility] [place] [facility] [address], [place], [address], 08/14/2021 04:39:03 08/14/19 22 08/13/2021 CBC (INCL UDES DIFF/ PLT) white blood cell count 5.6 thous and/u L 3.8-10 .8 normal Not Available [facility] [place] [facility] [address], [place], [address], 08/13/2021 23:00:31 08/14/19 22 08/13/2021 CBC (INCL UDES DIFF/ PLT) red blood cell count 4.71 efra on/uL 4.20-5 .80 normal Not Available [facility] [place] [facility] [address], [place], [address], 08/13/2021 23:00:31 08/14/19 22 08/13/2021 CBC (INCL UDES DIFF/ PLT) hemoglobin 15.7 g/dL 13.2-1 7.1 normal Not Available [facility] [place] [facility] [address], [place], [address], 08/13/2021 23:00:31 08/14/19 22 08/13/2021 CBC (INCL UDES DIFF/ PLT) hematocrit 44.7 % 38.5-5 0.0 normal Not Available [facility] [place] [facility] [address], [place], [address], 08/13/2021 23:00:31 08/14/19 22 08/13/2021 CBC (INCL UDES DIFF/ PLT) MCV 94.9 fL 80.0-1 00.0 normal Not Available [facility] [place] [facility] [address], [place], [address], 08/13/2021 23:00:31 08/14/19 22 08/13/2021 CBC (INCL UDES DIFF/ PLT) MCH 33.3 pg 27.0-3 3.0 high Not Available [facility] [place] [facility] [address], [place], [address], 08/13/2021 23:00:31 08/14/19 22 08/13/2021 CBC (INCL UDES DIFF/ PLT) MCHC 35.1 g/dL 32.0-3 6.0 normal Not Available [facility] [place] [facility] [address], [place], [address], 08/13/2021 23:00:31 08/14/19 22 08/13/2021 CBC (INCL UDES DIFF/ PLT) RDW 12.7 % 11.0-1 5.0 normal Not Available [facility] [place] [facility] [address], [place], [address], 08/13/2021 23:00:31 08/14/19 22 08/13/2021 CBC (INCL UDES DIFF/ PLT) platelet count 243 thous and/u L 140-40 0 normal Not Available [facility] [place] [facility] [address], [place], [address], 08/13/2021 23:00:31 08/14/19 22 08/13/2021 CBC (INCL UDES DIFF/ PLT) MPV 10.2 fL 7.5-12 .5 normal Not Available [facility] [address], [place], [address], 08/13/2021 23:00:31 08/14/19 22 08/13/2021 CBC (INCL UDES DIFF/ PLT) absolute neutrophils 3074 cells /uL 1500-7 800 normal Not Available [facility] [place] [facility] [address], [place], [address], 08/13/2021 23:00:31 08/14/19 22 08/13/2021 CBC (INCL UDES DIFF/ PLT) absolute lymphocytes 2072 cells /uL 850-39 00 normal Not Available [facility] [place] [facility] [address], [place], [address], 08/13/2021 23:00:31 08/14/19 22 08/13/2021 CBC (INCL UDES DIFF/ PLT) absolute monocytes 381 cells /uL 200-95 0 normal Not Available [facility] [place] [facility] [address], [place], [address], 08/13/2021 23:00:31 08/14/19 22 08/13/2021 CBC (INCL UDES DIFF/ PLT) absolute eosinophils 50 cells /uL 15-500 normal Not Available [facility] [place] [facility] [address], [place], [address], 08/13/2021 23:00:31 08/14/19 22 08/13/2021 CBC (INCL UDES DIFF/ PLT) absolute basophils 22 cells /uL 0-200 normal Not Available [facility] [place] [facility] [address], [place], [address], 08/13/2021 23:00:31 08/14/19 22 08/13/2021 CBC (INCL UDES DIFF/ PLT) neutrophils 54.9 % normal Not Available [facility] [address], [place], [address], 08/13/2021 23:00:31 08/14/19 22 08/13/2021 CBC (INCL UDES DIFF/ PLT) lymphocytes 37.0 % normal Not Available [facility] [place] [facility] [address], [place], [address], 08/13/2021 23:00:31 08/14/19 22 08/13/2021 CBC (INCL UDES DIFF/ PLT) monocytes 6.8 % normal Not Available [facility] [place] [facility] [address], [place], [address], 08/13/2021 23:00:31 08/14/19 22 08/13/2021 CBC (INCL UDES DIFF/ PLT) eosinophils 0.9 % normal Not Available [facility] [place] [facility] [address], [place], [address], 08/13/2021 23:00:31 08/14/19 22 08/13/2021 CBC (INCL UDES DIFF/ PLT) basophils 0.4 % normal Not Available [facility] [place] [facility] [address], [place], [address], 08/13/2021 23:00:31 08/14/19 22 08/14/2021 TSH W/REF TIN TO FT4 TSH w/reflex to FT4 1.29 mIU/L 0.40-4 .50 normal Not Available [facility] [place] [facility] [address], [place], [address], 08/14/2021 03:36:20 09/13/19 20 09/05/2019 imagi ng/di agnos tic resul t No observ ation record ed. [email or web address] [facility] - Mri [address] [place], [address], 09/17/2019 08:27:17 08/21/19 22 08/20/2021 imagi ng/di agnos tic resul t No observ ation record ed. [email or web address] [address] [facility], [place], [address], 10/26/2021 13:22:47 Result Notes None recorded. Problems Name Problem SNOMED Code Status Onset Date Resolution Date Notes Provider Name and Address Organization Details Recorded Time Increased blood pressure 61733149 Active 2017 Mellissa Bass MD [address] [place] [address], [phone], [facility] 8 14:57:56 Patellar tendonitis 73747802 Active 2015 Per [facility] 6 10:27:51 Acne keloidalis 292351285 Active 2015 Per [facility] 6 11:38:02 Problem Notes None recorded. Procedures Surgical History None recorded. Imaging Results Imaging Date Name Status LastModified by Organiz ation Details LastModified Time 09/05/2019 imaging/diag nostic result completed [email or web address] Corey [facility] - Mri [address] [place], [address], 09/17/2019 08:27:17 08/20/2021 imaging/diag nostic result completed [email or web address] [address] [place], [address], 10/26/2021 13:22:47 Procedure Notes None recorded. Medical Equipment None Reported. Allergies No known drug allergies Medications Name Sig Start Date Stop Date Status Note LastModified by Organization Details LastModified Time cyclobenz aprine 10 mg tablet 03/25 completed Not Available Not Available Not Available ketoconaz ole 200 mg tablet active Not Available Not Available No t Available hydrocodo ne 5 mg-acetam inophen 325 mg tablet TAKE 1 TABLET EVERY 6 HOURS BY ORAL ROUTE NEEDED. 03/25 completed Not Available Not Available Not Available fluocinon alvina 0.05 % topical gel APPLY TO THE AFFECTED AREA(S) BY TOPICAL ROUTE 2 TIMES PER DAY 10/23 completed Not Available Not Available Not Available minocycli ne 100 mg capsule Take 1 capsule every day by oral route in the evening. 10/23 completed valorie fields Not Available Not Available Not Available cephalexi n 500 mg capsule TAKE 1 CAPSULE BY MOUTH TWICE A DAY active Not Available Not Available No t Available diclofena c sodium 75 mg tablet,de layed release 02/01 completed Not Available Not Available Not Available clobetaso l 0.05 % scalp solution active Not Available Not Available Not Available clindamyc in 1 % topical foam active Not Available Not Available Not Available Vitals Date Recorded Body height Body mass index (BMI) Body mass index (BMI) Percentile per age and sex Body weight Systolic blood pressure Diastolic blood pressure Provider Name and Address Organization Details Last Updated DateTime 9 191.77 cm 29.1 kg/m2 93 % 703363. 8 g 122 mm[Hg] 80 mm[Hg] layla whittington [facility] 9 10:29:14 Date Recorded Body height Body mass index (BMI) Body weight Systolic blood pressure Diastolic blood pressure Provider Name and Address Organization Details Last Updated DateTime 03/25/2021 194.31 cm 28.6 kg/m2 714931.2 7 g 136 mm[Hg] 90 mm[Hg] [email or web address] figueroa [facility] 1 15:31:39 Date Recorded Body height Provider Name an d Address Organization Details Last Updated DateTime 08/13/2021 194.31 cm MICHELE ANNETTE [facility] 08/13/2021 11:44:08 Date Recorded Body mass index (BMI) Body weight Systolic blood pressure Diastolic blood pressure Provider Name and Address Organization Details Last Updated DateTime 08/13/2021 28.1 kg/m2 168962.61 g 172 mm[Hg] 80 mm[Hg] Camila Rey [facility] 08/13/2021 11:44:34 Date Recorded Body height Body mass index (BMI) Body weight Body temperature Systolic blood pressure Diastolic blood pressure Provider Name and Address Organization Details Last Updated DateTime 2 194.31 cm 28.2 kg/m2 558765. 21 g 98.3 [degF] 148 mm[Hg] 80 mm[Hg] Camila Rey [facility] 2 13:43:45 Social History Question Answer Notes LastModified by Organizat ion Details LastModified Time Tobacco Smoking Status Never Smoker Not Available [facility] 01/28/2020 03:57:11 What Is Your Level Of Alcohol Consumption? Occasional 1x A Week Information not available 03/25/2021 How Much Tobacco Do You Chew? None [id number] Information not available 01/28/2020 Which Illicit Or Recreational Drugs Have You Used? None [id number] Information not available 01/28/2020 Do You Or Have You Ever Used E-cigarettes Or Vape? Never Used Electronic Cigarettes [id number] Information not available 01/28/2020 What Was The Date Of Your Most Recent Tobacco Screening? 03/25/2021 Information not available 03/25/2021 Do You Use Protection During Sex? Always Information not available 03/25/2021 Are You Sexually Active? Yes [id number] Information not available 01/28/2020 Do You Or Have You Ever Used Smokeless Tobacco? Never Used Smokeless Tobacco [id number] Information not available 01/28/2020 How Much Tobacco Do You Smoke? No [id number] Information not available 01/28/2020 Do You Use Any Illicit Or Recreational Drugs? No Information not available 03/25/2021 How Many Years Have You Smoked Tobacco? 0 [id number] Information not available 01/28/2020 Do You Or Have You Ever Used Any Other Forms Of Tobacco Or Nicotine? Yes Information not available 03/25/2021 Sex: Unknown Functional Status None recorded. Mental Status None recorded. Family History Relationship Description Onset Age of this Age Resolved Age Notes LastModified by Organization Details LastModified Time Unspecified Relation Hypertensive disorder [email or web address] Not available 2017 14:58:54 Notes:Parents [facility] In [facility] a Mother: Alexandra alive and well allergic to pollen Father: alive and well allergiic to pollen gassy with milk Medical History Condition Response Blood Diseases N Hospital Admission Other Than N Depression N Developmental or Behavioral Disorders N Difficulty Swallowing N Anxiety Disorder N Muscle, Joint, or Bone Problems N Vision or Eye Problems N Head Injury/Concussion N Congenital Anomalies N Cancer N Bladder or Kidney Problems N Headaches N Allergies/Hayfever N Heart Problems N Ear or Hearing Problems N Thyroid Problems N ADD/ADHD N Skin Problems N Anemia N Constipation Y Mental Illness N Diabetes N Bedwetting N Seizures/Epilepsy N Asthma N Chronic Ear Infections N Chicken Pox N Autism Spectrum Disorder (ASD) N Immunizations Vaccine Type Date Status Note Provider Nam e and Address Organization Details Recorded Time HPV9 7 completed Not Available [facility] 04/13/2019 04:35:22 COVID-19 vaccine, vector-nr, rS-Ad26, PF, 0.5 mL 1 completed [facility] 04/06/2021 13:05:41 HPV9 6 completed Not Available [facility] 04/13/2019 04:35:23 meningococcal MCV4P 6 completed Not Available [facility] 04/13/2019 04:35:14 varicella 5 completed [facility] 10/06/2015 13:11:07 varicella 1 completed [facility] 10/06/2015 13:11:10 Tdap 1 completed [facility] 10/06/2015 13:11:18 pneumococcal conjugate PCV 7 1 completed [facility] 10/06/2015 13:11:29 pneumococcal conjugate PCV 7 1 completed [facility] 10/06/2015 13:11:36 pneumococcal conjugate PCV 7 0 completed [facility] 10/06/2015 13:11:42 pneumococcal conjugate PCV 7 0 completed [facility] 10/06/2015 13:11:55 MMR 5 completed [facility] 10/06/2015 13:12:12 MMR 1 completed [facility] 10/06/2015 13:12:17 meningococcal MCV4, unspecified formulation 1 completed [facility] 10/06/2015 13:12:26 IPV 4 completed [facility] 10/06/2015 13:12:36 IPV 2 completed Keshia Cardoso null, [place] - [facility] 10/06/2015 13:12:41 IPV 0 completed Keshia Cardoso [place] [facility] 10/06/2015 13:12:48 IPV 0 completed Keshia Cardoso null[place] [facility] 10/06/2015 13:12:51 HPV, unspecified formulation 4 completed Keshia Cardoso null[place] [facility] 10/06/2015 13:13:02 Hib, unspecified formulation 1 completed Keshia Cardoso null[place] [facility] 10/06/2015 13:13:13 Hib, unspecified formulation 1 completed Keshia Cardoso null[place] [facility] 10/06/2015 13:13:17 Hib, unspecified formulation 0 completed Keshia Cardoso null[place] [facility] 10/06/2015 13:13:22 Hib, unspecified formulation 0 completed Keshia Cardoso null[place] [facility] 10/06/2015 13:13:25 Hep B, unspecified formulation 1 completed Keshia Cardoso null[place] [facility] 10/06/2015 13:13:43 Hep B, unspecified formulation 0 completed Keshia Cardoso [place] [facility] 10/06/2015 13:13:47 Hep B, unspecified formulation 0 completed Keshia Cardoso null[place] [facility] 10/06/2015 13:13:56 Hep A, ped/adol, 2 dose 7 completed Keshia Cardoso null[place] [facility] 10/06/2015 13:14:07 Hep A, ped/adol, 2 dose 5 completed Keshia Cardoso null[place] [facility] 10/06/2015 13:14:10 Novel Vhichyirh-C2V1-76, nasal 9 completed Keshia Cardoso null[place] [facility] 10/06/2015 13:14:23 Novel Gsdjhntrq-Z2S9-86, all formulations 9 completed Keshia Cardoso null[place] [facility] 10/06/2015 13:14:39 Influenza, split virus, quadrivalent, preservative 4 completed Keshia Cardoso null[place] [facility] 10/06/2015 13:14:50 influenza, unspecified formulation 0 completed Keshia Cardoso null [place] [facility] 10/06/2015 13:15:03 influenza, unspecified formulation 8 completed Keshia Cardoso null[place] [facility] 10/06/2015 13:15:06 influenza, unspecified formulation 7 completed Keshia Cardoso null, [place] [facility] 10/06/2015 13:15:27 Influenza, live, trivalent, intranasal 1 completed Keshia Cardoso null [place] [facility] 10/06/2015 13:15:53 DTaP 4 completed Keshia Cardoso null[place] [facility] 10/06/2015 13:16:05 DTaP 2 completed Keshia Cardoso null[place] [facility] 10/06/2015 13:16:08 DTaP 1 completed Keshiamaya Cardoso null [place] [facility] 10/06/2015 13:16:13 DTaP 0 completed Keshia Cardoso null [place] [facility] 10/06/2015 13:16:20 DTaP 0 completed Keshia Cardoso null[place] [facility] 10/06/2015 13:16:24 typhoid, unspecified formulation 5 completed Keshia Cardoso null, [place] [facility] 10/06/2015 13:20:41 typhoid, unspecified formulation 7 completed Keshia Cardoso null[place] [facility] 10/06/2015 13:20:48 meningococcal ACWY, unspecified formulation 5 completed Keshia Cardoso null, [place] [facility] 10/06/2015 13:21:54 yellow fever live 5 completed Keshia Cardoso null[place] [facility] 10/06/2015 13:22:07 COVID-19, mRNA, LNP-S, PF, 30 mcg/0.3 mL dose, liang-sucrose 2 completed Thalia bey [place] - [facility] 04/06/2021 13:10:35 Past Encounters Encounter ID Performer Location Encounter Start Date Encounter Closed Date Diagnosis/Indication Diagnosis SNOMED-CT Code Diagnosis ICD10 Code Diagnosis Note [id number] Bertram Sterling [facility] [address] [place] [id number] 10/20/2015 15:44:35 10/20/2015 17:19:15 Well child 023360308 Z00.129 Exercises education, guidance, and counseling 249640524 Z71.89 Diet education 46593139 Z71.3 [id number] Quentin Gagnon MD [facility] [address] [place] [id number] 0 10/21/2016 13:02:07 10/21/2016 14:40:07 Well child 003476392 Z00.129 Exercises education, guidance, and counseling 798158878 Z71.89 Diet education 53412480 Z71.3 Cholesterol screening 27 8217286 Z13.220 Screening for disorder 977520991 Z13.9 Active or passive immunization 447406974 Z23 [id number] Mellissa Bass MD [facility] [address] [place] [id number] 09/28/2017 11:02:39 09/28/2017 11:59:11 Pain in right hip joint 1733735014 78040 M25.551 [id number] Chanel Randall [facility] [address] [place] [id number] 0 10/23/2017 13:22:16 10/23/2017 14:44:20 Adult health examination 302610597 Z00.00 Exercises education, guidance, and counseling 913363659 Z71.89 Diet education 86712018 Z71.3 Screening for disorder 517065678 Z13.9 [id number] BIMAL PATEL [facility] [address] [id number] 03/05/2018 13:25:00 03/05/2018 14:28:41 Increased blood pressure 23655698 R03.0 Overweight 081908489 E66 .3 [id number] layla whittington [address] [id number] 02/01/2019 10:15:29 02/01/2019 13:39:17 Adult health examination 673103305 Z00.00 Exercises education, guidance, and counseling 689886232 Z71.89 Diet education 34258731 Z71.3 Depression screening 171 017706 Z13.31 Pediatric Health Questionna scotty -9 (PHQ9) Score: 0-4 NONE ; 5-9 Mild Watchful ; 10-14 Treatment plan, considerin g counseling , follow-up and/or pharmacoth erapy Overweight in childhood 141540948 Z68.54 Weight loss advised 2759 27019 Z71.3 Dysuria 71548909 R30.9 [id number] Quentin Gagnon MD [address] [id number] 03/25/2021 15:17:50 04/12/2021 14:59:11 Adult health examination 019964452 Z00.00 Exercises education, guidance, and counseling 793958836 Z71.89 Diet education 41514016 Z71.3 Depression screening 171 159864 Z13.31 Pediatric Health Questionna scotty -9 (PHQ9) Score: 0-4 NONE ; 5-9 Mild Watchful ; 10-14 Treatment plan, considerin g counseling , follow-up and/or pharmacoth erapy Increased blood pressure 77704056 R03.0 diet exercise dec saltcome back for covid shot [id number] Thalia [address] [id number] 04/06/2021 12:53:48 04/26/2021 15:57:04 Active or passive immunization 945960731 Z23 [id number] Quentin Gagnon MD [address] [id number] 08/13/2021 11:34:07 08/16/2021 09:40:07 Elevated blood-pressure reading without diagnosis of hypertension 668626963 R03.0 [id number] Camila Castañedatamara [address] [id number] 10/26/2021 12:59:18 11/03/2021 11:43:58 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 Increased blood pressure 68470142 R03.0 diet exercise dec salt Health Concerns Section Related Observation LastModified by Organization Detai ls LastModified Time None Recorded Concern Status LastModified by Organization Details LastModified Time None Recorded Advance Directives Directive None Recorded Payers Encounter Date Sequence Insurance Name Policy Number Policy Ramirez Covered Member ID Ramirez Member ID Guarantor Name 02/01/2019 1 [place] [id number] Olegario Avila Igwenagu [id number] 03/25/2021 1 [place] [id number] Olegario Avila Igwenagu [id number] 04/06/2021 1 [place] [id number] Olegario Avila Igwenagu [id number] 08/13/2021 1 [place] [id number] Olegario Avila Igwenagu [id number] 10/26/2021 1 [place] [id number] Olegario Igwenagu [id number] Notes Date Note Type Note Provider Name and Address Organization Details Recorded Time 02/01/2019 text/html Concerns:{{ None }}at [facility], Current meds: {{muscle relaxer# None. fluoride. fluoride in tap water. Restart Floride Albuterol. Multi vitamin Allergy Meds}} Vaccine(s) Needed: {{HPV}}{{HEP A}}{{FLU}}{{NONE}} Patient complains of {{ painful better now# frequent & painful painful burning frequent}}Urinationf or {{ first time today 1 2 3 4* 5 67}} {{days * weeks}} tried cranberry Patient reports urinating every {{ 10-20 min 30 min hourly several times per day }} with large amounts. Patient reports{{no * presence of }} night symptoms. {{Wetting bed gets up to urinate}} Patient reports a {{rash no rash*}} in perineum {{with without}} itching, {{with without }} discharge. Recent History: {{ swimming Antibiotic use bubble baths}} PT has a past history of {{afebrile UTIs febrile UTI yeast infections constipat ion}} Stool is {{normal soft hard w atery}}, passed {{with without}} straining {{most days QOD 1-2x per week}} sex Not since September . [facility] 02/01/2019 12:26:00 03/25/2021 text/html Concerns:{{None} } doesnt want covid vac.recent flu Current meds: {{None.* fluoride. f luoride in tap water. Restart Floride Albuterol. M ulti vitamin Allergy Meds}} Vaccine(s) Needed: {{HPV}}{{HEP A}}{{FLU}}{{NONE}} Quentin Gagnon MD [address] [place] [address], [phone], [facility] 03/25/2021 16:22:09 08/13/2021 text/html hands shakesomet imes muscele crampno caffienemeds mg zn no supplement low salt not nervous noct enuresis gets up 2-3 times to urinatetries to drink alot surgery last year Quentin Gagnon MD [address] [place] [address], [phone], [facility] 08/13/2021 12:08:45 10/26/2021 text/html BPLosing hsir 1yeCaruthersmery patiño some helpDad is baldHeperNo other meds no caffirne [facility] 10/26/2021 13:43:59
== END 2024-05-26 19:11 | disposition home or self-care (01) ==
LOC: HO.MRI 19:10
PROVIDERS: Visit Provider Family Medicine
DX: M25.562 Pain in left knee (principal)
CPT/HCPCS: 73721

== ENCOUNTER → 2024-05-26 19:33 | Outpatient (BNV) | payer OTHER, SELFPAY | PROVIDERS: Visit Provider Specialist | DX: M25.562 Pain in left knee (principal) | CPT/HCPCS: 73721 ==